=== PATIENT | female | born 1975 | race Two or more races ===

== ENCOUNTER → 2023-11-08 | Emergency (ER) | payer OTHER ==
[~2023-11-08] VITALS: Ht 162.6 cm; Wt 74.8 kg
[~2023-11-08] MED LIST: ALLEGRA; ENOXAPARIN SODIUM 60 MG/0.6 ML SYRINGE SUBCUTANEO ONE; LEVSIN/SL0.125 MG SL; PEPCID40 MG PO; ZOFRAN8 MG PO
== END | disposition home or self-care (01) ==
LOC: ER 15:42
DX: M79.604 Pain in right leg (principal); Z88.8 Allergy status to other drugs, medicaments and biological substances

== ENCOUNTER → 2023-11-09 | Emergency (ER) | payer OTHER ==
[~2023-11-09] VITALS: Ht 162.6 cm; Wt 72.6 kg
[~2023-11-09] MED LIST changes: -ENOXAPARIN SODIUM 60 MG/0.6 ML SYRINGE SUBCUTANEO ONE
== END | disposition left against medical advice (07) ==
LOC: ER 08:57
DX: S93.491A Sprain of other ligament of right ankle, initial encounter (principal); Z88.8 Allergy status to other drugs, medicaments and biological substances

== ENCOUNTER 2024-06-17 08:10 | Outpatient (CLI) | payer OTHER | END 2024-06-17 08:27 | disposition home or self-care (01) | LOC: SONOGRAMA 08:10 | PROVIDERS: ATTEND Obstetrics & Gynecology | DX: D25.9 Leiomyoma of uterus, unspecified (principal) ==